=== PATIENT | female | born 1990 | race African-American/Black ===

== ENCOUNTER 2017-09-03 10:34 | Emergency (ER) | payer MEDICAID ==
[~2017-09-03] VITALS: Ht 165.1 cm; Wt 52.2 kg
[2017-09-03 10:50] VITALS: BP 105/55; PULSE 69; RESP 20; TEMP 98.7; O2SAT 100
[2017-09-03] MEDS ORDERED: KETOROLAC TROMETHAMINE 30 MG/ML (IVP) VIAL IV PUSH ONE (11:45)
[2017-09-03] MEDS ORDERED: SODIUM CHLORIDE 0.9% FLUSH 10 ML FLUSH IVF PRN (11:45)
[2017-09-03] MEDS ORDERED: SODIUM CHLOR 0.9% 1000 ML INJ 1,000 ML IV ONE (11:45)
--- NOTE | 2017-09-03 12:31 | PD ---
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 It started on August 19 and says this was the beginning of her menses. Has been going through for overnight pads per day. Has never had bleeding like this before. Says she is feeling weak, drained, and has no energy. Reports lower abdominal cramping and back pain. Denies fever, vomiting. Denies abnormal vaginal discharge, odor, lesions. Denies chest pain, shortness of breath, lightheadedness, dizziness. Denies dysuria, hematuria. Abdominal pain is constant. Rates pain 8/10. Describes as cramping, pressure, tightness. Has not taken any medications or trying treatments to alleviate her symptoms. No known aggravating or relieving factors. No known allergies. Primary CARE providers in [place]. Does not have a ratings analyst. Denies significant past medical history. Has no other medical complaints. No other modifying factors or associated signs and symptoms. PFSH Past Medical History ?: Not LMP: 08/19/17 Social History Tobacco Use: No Allergies-Medications (Allergen,Severity, Reaction): Coded Allergies: No Known Allergies (Unverified , 09/03/17) Reported Meds & Prescriptions Reported Meds & Active Scripts Active Ferrous Sulfate 325 Mg (65 Mg Iron) Tablet 325 Mg PO DAILY Flagyl (Metronidazole) 500 Mg Tab 500 Mg PO BID 7 Days Review of Systems Except as stated in HPI: all other systems reviewed are Neg Physical Exam Narrative GENERAL: Well-nourished, well-developed black female patient, in no acute distress; afebrile, nontoxic-appearing SKIN: Warm and dry. HEAD: Atraumatic. Normocephalic. EYES: Pupils equal and round. No scleral icterus. No injection or drainage. ENT: Mucous membranes pink and moist. NECK: Trachea midline. No lymphadenopathy. CARDIOVASCULAR: Regular rate and rhythm. No murmur appreciated. RESPIRATORY: No accessory muscle use. Clear to auscultation. Breath sounds equal bilaterally. GASTROINTESTINAL: Abdomen soft, non-tender, nondistended. Bilateral pelvic region nontender to palpation. Hepatic and splenic margins not palpable. No guarding, rigidity, rebound tenderness. PELVIC: Exam done in the presence of a nurse. Speculum exam reveals edematous and erythematous cervix with large amount of dark red, frothy, foul-smelling discharge. No retained foreign product noted. Bimanual exam reveals no palpable masses or adnexa tenderness, no uterine tenderness. Positive cervical motion tenderness. BACK: No CVA tenderness. MUSCULOSKELETAL: No obvious deformities. No clubbing. No cyanosis. No edema. NEUROLOGICAL: Awake and alert. No obvious cranial nerve deficits. Motor grossly within normal limits. Normal speech. PSYCHIATRIC: Appropriate mood and affect; insight and judgment normal. Data Data Last Documented VS Vital Signs Date Time Temp Pulse Resp B/P (MAP) Pulse Ox O2 Delivery O2 Flow Rate FiO2 09/03/17 10:50 98.7 69 20 105/55 (72) 100 Orders Orders Complete Blood Count With Diff (09/03/17 11:32) Comprehensive Metabolic Panel (09/03/17 11:32) Wet Prep Profile (09/03/17 11:32) Urinalysis - C+S If Indicated (09/03/17 11:32) Iv Access Insert/Monitor (09/03/17 11:32) Sodium Chloride 0.9% Flush (Ns Flush) (09/03/17 11:45) Ed Urine Pregnancytest Poc (09/03/17 11:32) Sodium Chlor 0.9% 1000 Ml Inj (Ns 1000 M (09/03/17 11:45) Ketorolac Inj (Toradol Inj) (09/03/17 11:45) Azithromycin Powd Pack (Zithromax Powd P (09/03/17 13:45) Ceftriaxone Inj (Rocephin Inj) (09/03/17 13:45) Lidocaine 1% Inj (50 Ml) (Xylocaine 1% I (09/03/17 13:45) Doxycycline (Vibramycin) (09/03/17 13:45) Ketorolac Inj (Toradol Inj) (09/03/17 13:45) Metronidazole (Flagyl) (09/03/17 14:15) Us Pelvis Comp W Transvaginal (09/03/17 ) Gc And Chlamydia Pcr (09/03/17 14:34) Ed Discharge Order (09/03/17 16:05) Labs Laboratory Tests Test 09/03/17 11:47 09/03/17 13:25 White Blood Count 5.0 TH/MM3 Red Blood Count 3.86 MIL/MM3 Hemoglobin 9.4 GM/DL Hematocrit 29.3 % Mean Corpuscular Volume 75.9 FL Mean Corpuscular Hemoglobin 24.4 PG Mean Corpuscular Hemoglobin Concent 32.2 % Red Cell Distribution Width 20.0 % Platelet Count 326 TH/MM3 Mean Platelet Volume 7.7 FL Neutrophils (%) (Auto) 48.1 % Lymphocytes (%) (Auto) 36.2 % Monocytes (%) (Auto) 9.9 % Eosinophils (%) (Auto) 4.9 % Basophils (%) (Auto) 0.9 % Neutrophils # (Auto) 2.4 TH/MM3 Lymphocytes # (Auto) 1.8 TH/MM3 Monocytes # (Auto) 0.5 TH/MM3 Eosinophils # (Auto) 0.2 TH/MM3 Basophils # (Auto) 0.0 TH/MM3 CBC Comment DIFF FINAL Differential Comment Urine Color YELLOW Urine Turbidity CLEAR Urine pH 5.5 Urine Specific [place] 1.014 Urine Protein NEG mg/dL Urine Glucose (UA) NEG mg/dL Urine Ketones NEG mg/dL Urine Occult Blood MOD Urine Nitrite NEG Urine Bilirubin NEG Urine Urobilinogen LESS THAN 2.0 MG/DL Urine Leukocyte Esterase NEG Urine RBC 136 /hpf Urine WBC 1 /hpf Urine Squamous Epithelial Cells <1 /hpf Urine Mucus FEW /lpf Microscopic Urinalysis Comment CULT NOT INDICATED Blood Urea Nitrogen 5 MG/DL Creatinine 0.92 MG/DL Random Glucose 82 MG/DL Total Protein 7.2 GM/DL Albumin 3.9 GM/DL Calcium Level 8.8 MG/DL Alkaline Phosphatase 74 U/L Aspartate Amino Transf (AST/SGOT) 43 U/L Alanine Aminotransferase (ALT/SGPT) 35 U/L Total Bilirubin 0.2 MG/DL Sodium Level 141 MEQ/L Potassium Level 3.7 MEQ/L Chloride Level 109 MEQ/L Carbon Dioxide Level 24.9 MEQ/L Anion Gap 7 MEQ/L Estimat Glomerular Filtration Rate 73 ML/MIN Clue Cells (Wet Prep) PRESENT Vaginal Trichomonas (Wet Prep) NONE SEEN Vaginal Yeast (Wet Prep) NONE SEEN MDM Medical Decision Making Medical Screen Exam Complete: Yes Emergency Medical Condition: Yes Medical Record Reviewed: Yes Differential Diagnosis Dysfunctional uterine bleeding, prolonged menses, menorrhagia, dysmenorrhea, miscarriage Narrative Course 27-year-old female with prolonged vaginal bleeding 2 weeks. CBC, CMP, urinalysis, UPT, wet prep, chlamydia, gonorrhea, IV, normal saline bolus, Toradol ordered. UPT negative. 1341: Hgb 9.4. CMP unremarkable. Urinalysis without signs of infection. 1340: Pelvic exam with cervicitis, positive cervical motion tenderness, and moderate amount of dark red, frothy, very foul-smelling discharge; no retained foreign product noted. Discussed findings with Dr. Arriaza, my attending physician, and she recommends pelvic ultrasound. Patient empirically treated with Rocephin, azithromycin, doxycycline. 1415: Trichomonas, vaginal yeast negative. Clue cells positive. Flagyl ordered. 1600: Pelvic ultrasound concludes: Pelvis Ultrasound 09/03/17 0000 Signed Impressions: Service Date/Time: Sunday, September 03, 2017 13:46 - CONCLUSION: There is fluid in the endometrial cavity as well as an echogenic mass demonstrating blood flow on color Doppler imaging. Endometrial polyp would be the leading consideration. Trace free fluid in the cul-de-sac. Miki Caraballo MD Patient provided a copy of the ultrasound report. Dr. Arriaza reviewed the ultrasound report and agrees with outpatient follow-up. Ferrous sulfate, Flagyl , doxycycline prescribed for home. Instructed patient to follow-up with ratings analyst. Patient provided information for [facility], [facility]'s care now. Instructed patient to follow up with primary care provider. Patient verbalizes understanding and agreement with treatment plan. Patient is medically cleared and stable for discharge. Discussed reasons to return to the emergency department. Patient agrees with treatment plan. The patients vital signs are stable and the patient is stable for outpatient follow- up and treatment. Patient discharged home, stable and in no acute distress. Diagnosis Primary Impression: Vaginal bleeding Additional Impressions: Bacterial vaginosis Endometrial mass Cervicitis Referrals: [facility] Electrocardiogram Technician [facility] Primary Care Physician Patient Instructions: Bacterial Vaginosis (ED), Cervicitis (ED), Dysmenorrhea ( ED), General Instructions Additional Instructions: Ibuprofen or Tylenol as directed and as needed for pain Ferrous sulfate as prescribed Flagyl as prescribed; do not drink alcohol while taking Flagyl Follow-up with gynecology I have provided she with resources for [facility]'s care now, [facility], and [facility] for follow-up Follow-up with primary care provider Return to the emergency department immediately for worsening of symptoms Med/Other Pt SpecificInfo: Prescription(s) given Scripts Doxycycline Hyclate (Doxycycline Hyclate) 100 Mg Cap 100 MG PO BID for Infection for 10 Days, #20 CAP 0 Refills Prov: Annmarie Petty 09/03/17 Ferrous Sulfate (Ferrous Sulfate) 325 Mg (65 Mg Iron) Tablet 325 MG PO DAILY for Nutritional Supplement, #30 TAB 0 Refills Prov: Annmarie Petty 09/03/17 Metronidazole (Flagyl) 500 Mg Tab 500 MG PO BID for Infection for 7 Days, #14 TAB 0 Refills Prov: Annmarie Petty 09/03/17 Disposition: 01 DISCHARGE HOME Condition: Stable Annmarie Petty September 03, 2017 12:31
[2017-09-03 12:38] LABS: AUTOMATED NEUTROPHIL # 2.4 TH/MM3 (1.8-7.7); BASOPHIL % 0.9 % (0.0-2.0); EOSINOPHIL # 0.2 TH/MM3 (0-0.4); EOSINOPHIL % 4.9 % (0.0-4.0); HEMATOCRIT 29.3 % (35.0-46.0); HEMOGLOBIN 9.4 GM/DL (11.6-15.3); LYMPH % 36.2 % (9.0-44.0); LYMPHOCYTE # 1.8 TH/MM3 (1.0-4.8); MEAN CELL VOLUME 75.9 FL (80.0-100.0); MEAN CORPUSCULAR HEMOGLOBIN 24.4 PG (27.0-34.0); MEAN CORPUSCULAR HGB CONC 32.2 % (32.0-36.0); MEAN PLATELET VOLUME 7.7 FL (7.0-11.0); MONO % 9.9 % (0.0-8.0); MONOCYTE # 0.5 TH/MM3 (0-0.9); NEUT % 48.1 % (16.0-70.0); PLATELET COUNT 326 TH/MM3 (150-450); RED BLOOD COUNT 3.86 MIL/MM3 (4.00-5.30)
[2017-09-03 12:42] LABS: BILIRUBIN, URINE NEG (NEG); BLOOD, URINE MOD (NEG); GLUCOSE,URINE NEG (NEG); KETONE, URINE NEG (NEG); MUCUS URINE FEW /lpf (OCC); NITRITE,URINE NEG (NEG); PH, URINE 5.5 (5.0-8.5); SQUAMOUS EPITHELIAL CELL URINE <1 /hpf (0-5); URINE COLOR YELLOW (YELLW/STRAW); URINE LEUKOCYTE ESTERASE NEG (NEG)
[2017-09-03 12:45] LABS: ALBUMIN 3.9 GM/DL (3.4-5.0); ALT (GPT) 35 U/L (10-53); AST (GOT) 43 U/L (15-37); BICARBONATE 24.9 MEQ/L (21.0-32.0); BLOOD UREA NITROGEN 5 MG/DL (7-18); CALCIUM 8.8 MG/DL (8.5-10.1); CHLORIDE 109 MEQ/L (98-107); CREATININE 0.92 MG/DL (0.50-1.00); GLOMERULAR FILTRATION RATE 73 ML/MIN (>89); GLUCOSE,RANDOM 82 MG/DL (74-106); SODIUM (NA) 141 MEQ/L (136-145)
[2017-09-03 12:47] LABS: ALKALINE PHOSPHATASE 74 U/L (45-117); TOTAL BILIRUBIN ADULT 0.2 MG/DL (0.2-1.0); TOTAL PROTEIN 7.2 GM/DL (6.4-8.2)
[2017-09-03] MEDS ORDERED: DOXYCYCLINE HYCLATE 100 MG CAP PO ONE (13:45)
[2017-09-03] MEDS ORDERED: AZITHROMYCIN PWD FOR SUSP 1 GM PACKET PO ONE (13:45)
[2017-09-03] MEDS ORDERED: KETOROLAC TROMETHAMINE 60 MG/2 ML (IM) VIAL IM ONE (13:45)
[2017-09-03] MEDS ORDERED: LIDOCAINE HCL 1% 50 ML VIAL IM ONE (13:45)
[2017-09-03] MEDS ORDERED: cefTRIAXone 250 MG VIAL IM ONE (13:45)
[2017-09-03] MEDS ORDERED: metroNIDAZOLE 500 MG TAB PO ONE (14:15)
--- NOTE | 2017-09-03 15:41 | RADRPT ---
EXAM DATE/TIME: 09/03/2017 13:46 [place] COMPARISON: No previous studies available for comparison. INDICATIONS : Bleeding and cramping for 2 weeks. MEDICAL HISTORY : Bleeding and cramping for 2 weeks. SURGICAL HISTORY : None. ENCOUNTER: Initial ACUITY: 2 weeks PAIN SCORE: 3/10 LOCATION: Bilateral pelvis MEASUREMENTS: UTERUS: 9.8 x 3.9 x 2.7 cm ENDOMETRIAL STRIPE: 9 mm RIGHT OVARY: 3.9 x 2.2 x 2.7 cm LEFT OVARY: 3.9 x 2.6 x 2.2 cm FINDINGS: UTERUS: The myometrium is normal. There is fluid in the endometrial cavity as well as a nodular echogenic mas slike areas seen in the cavity near the fundus measuring 7.6 by simple by 5.5 mm with blood flow on c olor Doppler imaging. RIGHT OVARY: Ovary contains no mass or significant cystic lesion. LEFT OVARY: Ovary contains no mass or significant cystic lesion. MISCELLANEOUS: Trace free fluid. CONCLUSION: There is fluid in the endometrial cavity as well as an echogenic mass demonstrating blood flow on col or Doppler imaging. Endometrial polyp would be the leading consideration. Trace free fluid in the cul-de-sac. Miki Caraballo MD on September 03, 2017 at 15:37 Board Certified Radiologist. This report was verified electronically.
[2017-09-03] MEDS ORDERED: METR-1 PO (16:04)
[2017-09-03] MEDS ORDERED: FERR325T18 PO (16:04)
[2017-09-03] MEDS ORDERED: DOXY100C PO (16:16)
== END 2017-09-03 16:51 | disposition home or self-care (01) ==
LOC: NEPD 10:34
DX: N93.9 Abnormal uterine and vaginal bleeding, unspecified (principal); N76.0 Acute vaginitis; B96.89 Other specified bacterial agents as the cause of diseases classified elsewhere; N72 Inflammatory disease of cervix uteri
CPT/HCPCS: 76830; 76856; 80053; 81001; 84703; 85025; 87210; 87491; 87591; 96361; 96372; 96374; 99284; J0696; J1885; J7030